=== PATIENT | male | born 1995 | race Caucasian/White ===

== ENCOUNTER 2021-10-18 11:43 | Emergency (ER) | payer BC, SELFPAY ==
--- NOTE | 2021-10-18 12:04 | ED.SKABFB ---
HPI - Skin/Abscess/Foreign Bdy General Chief complaint: Skin/Abscess/Foreign Body Stated complaint: Rash on left leg Time Seen by Provider: 10/18/21 12:35 Source: patient Mode of arrival: ambulatory Limitations: no limitations History of Present Illness HPI narrative: Mr. Solano is a 25-year-old male patient presenting to the clinic today with complaints of a itchy raised red rash on his left knee. He reports that he has had this for about 2 days. He denies any fever or chills or any new injury to the left knee. He denies any pain to the left knee. Related Data Allergies Allergy/AdvReac Type Severity Reaction Status Date / Time No Known Allergies Allergy Verified 10/18/21 12:17 Review of Systems Review of Systems: Pertinent positives per HPI. Patient denies any fever, chills, headache, visual changes, dizziness, cough, runny nose, sore throat, shortness of breath, chest pain, palpitations, nausea, vomiting, diarrhea, constipation, abdominal pain, or any urinary issues. PMFSH Comments At the time of my signature, I reviewed and agree with the nursing past medical, surgical, social, and family history. There is no relevant family history pertinent to the patient complaint. Exam Narrative: General: Well-developed, well nourished, in no apparent distress Head: Normocephalic, atraumatic. Cardio: Regular rate and rhythm, s1 and s2 normal, no murmur appreciated. Resp: Clear to auscultation bilaterally, no rhonchi, rales, wheezing or rubs. Integumentary: [place], warm, and dry, intact without lesion, red, raised, itchy, blistery like rash to the left anterior knee and surrounding tissue Course Course Emergency Course: Portions of this record may have been created with voice recognition software. Level of Care: Express Care Visit Vital Signs Vital signs: Vital Signs Temperature 36.3 C L 10/18/21 12:17 Pulse Rate 67 10/18/21 12:17 Respiratory Rate 16 10/18/21 12:17 Blood Pressure 138/80 10/18/21 12:17 Pulse Oximetry 100 10/18/21 12:17 Oxygen Delivery Room Air 10/18/21 12:17 Temperature 36.3 C L 10/18/21 12:17 Pulse Rate 67 10/18/21 12:17 Respiratory Rate 16 10/18/21 12:17 Blood Pressure 138/80 10/18/21 12:17 Pulse Oximetry 100 10/18/21 12:17 Oxygen Delivery Room Air 10/18/21 12:17 Vital signs reviewed MDM - Skin/Abscess/Foreign Bdy MDM Narrative Medical decision making narrative: At the time of visit patient is resting comfortably on the exam table. I suspect the patient's has gotten into some poison michelle. Decadron 10 mg IM given in the clinic today and prescription for some prednisone oral given to the patient to start tomorrow. Supportive measures were discussed with the patient he voiced understanding of discharge instructions and agrees to the treatment plan Differential Diagnosis Differential diagnosis: Likely abscess of skin or subcutaneous tissue, allergic reaction to drug, cellulitis, eczema, insect bites and contact dermatitis Discharge Plan Discharge Clinical Impression: Allergic contact dermatitis due to plant Patient Disposition: Home, Self-Care Condition: Stable Instructions: Antibiotic Form, Contact Dermatitis (ED), Poison Michelle (ED) Additional Instructions: Decadron 10 mg IM given in the clinic today Take prednisone 40 mg daily x5 days Increase fluids and stay well-hydrated Avoid scratching or itching the affected area May apply calamine lotion to the affected area May take 25 to 50 mg of Benadryl every 6 hours as needed for itching, swelling Follow-up with your PCP in 5 days if symptoms persist or sooner if they worsen Prescriptions: New prednisone 20 mg tablet 40 mg PO DAILY 5 Days Qty: 10 0RF Follow-up/Referrals: UNKNOWN,DOCTOR [Primary Care Provider] - Time of Disposition: 12:46 Quality NIHSS Nursing Documentation ED NIHSS nursing documentation: reviewed/agree
[2021-10-18 12:17] VITALS: BP 138/80; PULSE 67; RESP 16; TEMP 36.3; O2SAT 100
== END 2021-10-18 12:49 | disposition home or self-care (01) ==
PROVIDERS: Emergency Provider Nurse Practitioner Family
DX: L23.7 Allergic contact dermatitis due to plants, except food (principal)
CPT/HCPCS: 96372; 99203; G0463; J1100